=== PATIENT | male | born 1980 | race African-American/Black ===

== ENCOUNTER 2021-01-25 12:32 | Emergency (ER) | payer OTHER, SELFPAY ==
[2021-01-25 12:49] VITALS: BP 140/106; PULSE 101; RESP 16; TEMP 36.7; O2SAT 100
--- NOTE | 2021-01-25 13:08 | ED.URI ---
HPI - URI/Sore Throat General Chief Complaint: Upper Respiratory Infection Stated Complaint: sore throat/ear pain/cough Source: patient Mode of arrival: ambulatory Limitations: no limitations History of Present Illness HPI Narrative: Patient is a 40 year old male who presents complaining cough, sore throat, congestion, sinus pain and pressure. Patient reports negative Covid PCR received yesterday. He denies fever, chest pain or shortness of breath at this time. Patient is Covid vaccinated x 1 and will have second vaccine within the week. He denies all other complaints at this time. Related Data Home Medications Medication Instructions Recorded Confirmed atenolol-chlorthalidone 1 tablet PO DAILY 01/25/21 01/25/21 losartan 100 mg PO DAILY 01/25/21 01/25/21 potassium chloride 10 meq PO DAILY 01/25/21 01/25/21 Allergies Allergy/AdvReac Type Severity Reaction Status Date / Time No Known Allergies Allergy Verified 01/25/21 13:05 Review of Systems Review of Systems: CONSTITUTIONAL: Denies fever, chills, or sweats. EYES: Denies visual changes, redness, or discharge. ENT: Reports rhinorrhea, congestion, sore throat, and otalgia. CARDIOVASCULAR: Denies chest pain, palpitations, or edema. RESPIRATORY: Reports cough, denies dyspnea. GASTROINTESTINAL: Denies abdominal pain, nausea, vomiting, or diarrhea. GENITOURINARY: Denies dysuria or hematuria. SKIN: Denies rash or itching. MUSCULOSKELETAL: Denies back pain, joint pain, or myalgia. NEUROLOGIC: Denies headache, numbness, dizziness, or weakness. PSYCHIATRIC: Denies anxiety or depression. FOR[facility]LY [facility], LATER [facility] Past Medical History Medical History HTN (hypertension) Left hand fracture Surgical History Surgical History History of orthopedic surgery Social History Social History (Updated 01/25/21 @ 13:13 by LISA Melgoza) Smoking status: Never smoker Alcohol intake: never Substance use: never Living arrangements: with family Comments At the time of signature, I have reviewed and agree with nursing past medical, surgical, social, and family history unless otherwise noted. Please see nursing chart for further information. There is no relevant family history pertinent to the presenting complaint. Exam Narrative: GENERAL: Well-appearing, well-nourished, and in no acute distress. HEAD: Normocephalic, atraumatic. EYES: EOMI. No redness or drainage. Conjunctiva are normal. ENT: Mucous membranes pink and moist. Nares clear. No rhinorrhea. TMs normal bilaterally. Throat with moderate erythema, edema and exudate. Uvula midline. NECK: AROM. Supple. No lymphadenopathy. CHEST: No respiratory distress. HEART: Regular rate and rhythm. EXTREMITIES: Normal range of motion. SKIN: Warm, dry, no rash. NEURO: No focal deficits. Alert and oriented x3. Gait steady. PSYCH: Normal affect. No signs of depression or anxiety. Course Vital Signs Vital signs: Vital Signs Temperature 36.7 C 01/25/21 12:49 Pulse Rate 101 H 01/25/21 12:49 Respiratory Rate 16 01/25/21 12:49 Blood Pressure 140/106 H 01/25/21 12:49 Pulse Oximetry 100 01/25/21 12:49 Temperature 36.7 C 01/25/21 12:49 Pulse Rate 101 H 01/25/21 12:49 Respiratory Rate 16 01/25/21 12:49 Blood Pressure 140/106 H 01/25/21 12:49 Pulse Oximetry 100 01/25/21 12:49 Reviewed-patient is informed that they may have pre-hypertension or hypertension based on a blood pressure reading. I recommend the patient call the primary care provider listed on their discharge instructions or a physician of their choice this week to arrange follow-up for further evaluation of possible pre-hypertension or hypertension. MDM - URI/Sore Throat Differential Diagnosis Differential diagnosis: Likely upper respiratory infection, otitis media, sinusitis, viral infection and pharyngitis Medical Records Attestatio
== END 2021-01-25 13:38 | disposition home or self-care (01) ==
PROVIDERS: Emergency Provider Nurse Practitioner; PCP Internal Medicine
DX: J32.9 Chronic sinusitis, unspecified (principal); J02.9 Acute pharyngitis, unspecified; I10 Essential (primary) hypertension
CPT/HCPCS: 87081; 87880; 99213; G0463